=== PATIENT | female | born 1995 | race Two or more races ===

== ENCOUNTER 2023-09-26 12:02 | Emergency (ER) | payer OTHER, SELFPAY ==
[2023-09-26 12:43] VITALS: BMI 22.5
[2023-09-26 12:45] VITALS: BP 124/85; PULSE 124; RESP 16; TEMP 37.7; O2SAT 94
[2023-09-26] MEDS: Ibuprofen 600 MG TABLET PO (12:49)
--- NOTE | 2023-09-26 12:50 | PC.NURSE ---
medication administered per provider order.
[2023-09-26 12:59] LABS: IDNOW Serial# 08D9AD1C
[2023-09-26 13:00] LABS: Strep A Nucleic Acid Negative (Negative)
[2023-09-26 13:37] LABS: Influenza A PCR NEGATIVE (Negative); Influenza B PCR NEGATIVE (Negative); Resp Syncy Virus RNA Qual PCR NEGATIVE (Negative); SARS COV2 PCR INHOUSE POSITIVE (Negative)
[2023-09-26 13:45] VITALS: BP 113/81; PULSE 111; RESP 20; O2SAT 95
--- NOTE | 2023-09-26 13:51 | ED_ITS ---
HPI - URI/Sore Throat General Chief Complaint: Upper Respiratory Symptoms Stated Complaint: sore throat flu symptons Time Seen by Provider: 09/26/23 12:38 Source: patient, RN notes reviewed and old records reviewed Mode of arrival: ambulatory History of Present Illness HPI Narrative: 27-year-old female with no significant past medical history presenting to the ED complaining of myalgias, generalized fatigue/weakness, chills, cough, chest discomfort with coughing, and SOB x3-4 days. Admits family member recently tested positive for COVID-19. Also reports some nausea and vomiting. Denies abdominal pain, recent travel, diarrhea Related Data Previous Rx's Medication Instructions Recorded ondansetron 4 mg disintegrating 4 mg PO Q8H PRN nausea and 09/26/23 tablet vomiting #10 tabs Allergies Allergy/AdvReac Type Severity Reaction Status Date / Time No Known Allergies Allergy Verified 09/26/23 12:43 Review of Systems Review of Systems: Constitutional: No Fever, No Chills, +fatigue, +malaise ENT/Mouth: No Ear Pain, + Nasal Congestion, No Sinus Pain, No Hoarseness, +sore throat, + Rhinorrhea, No Swallowing Difficulty Cardiovascular: +Chest Pain w/cough, + SOB Respiratory: +Cough, No Sputum, No Wheezing Gastrointestinal: +Nausea, + Vomiting, No Diarrhea, No Constipation, No Abdominal pain Genitourinary: No Dysuria, No Urinary Frequency, No Flank Pain Musculoskeletal: No joint pain, + Myalgias, No Joint Swelling Skin: No Skin Lesions, No rash Neuro: No Weakness Yes all other systems are reviewed and are negative Constitutional: Constitutional: Reports as per [facility] Past Medical History Attestation statement: The following information was validated with the patient. Source: old records reviewed Social History Social History Smoked in Last 30 Days: No Use of substances other than those prescribed or required for medical reasons: No Advance Directives: No Advance Directives Information Provided: Yes Patient : No Physical Exam Vital Signs: Vital Signs: Last Vital Signs Temp 99.8 F 09/26/23 12:45 Pulse 111 H 09/26/23 13:45 Resp 20 09/26/23 13:45 BP 113/81 09/26/23 13:45 Pulse Ox 95 09/26/23 13:45 O2 Del Method Room Air 09/26/23 13:45 BMI result Body Mass Index 22.5 Const: General: cooperative, healthy appearing and no acute distress Orientation/consciousness: patient oriented x3 Limitations: no limitations HEENT: Head: Yes normal to inspection and Yes atraumatic Ears: hearing grossly normal bilaterally, external ears normal, TM's normal bilaterally and mastoids normal General nose exam: Normal external nose present Face and sinus: Yes normal facial exam Mouth: Normal oral and palatal mucosa present Throat: Yes posterior oropharynx normal, Yes tonsils normal and Yes uvula midline Eyes: General: appearance normal, both eyes and all related structures EOM: EOMs intact bilaterally Neck: Neck: Yes normal visual inspection and Yes no meningeal signs Resp: Effort & Inspection: normal respiratory effort, no respiratory distress and no stridor Auscultation: no crackles and no wheezes Cardio: Rate: regular rate and tachycardic Skin: Rashes: no rashes Wounds: no wounds Neuro: General: patient oriented x3, tone normal and no meningeal signs Cranial nerves: Yes CN's II-XII intact bilaterally Gait exam (Neuro): Normal gait present Extrem: General: Yes normal to inspection Course Course Course Narrative: -COVID-19 positive Results discussed with patient including worrisome signs and symptoms and strict return precautions, and when to return to the emergency department. They verbalized understanding and feel safe for discharge at this time. Medications Administered Discontinued Medications Generic Name Dose Route Start Last Admin Trade Name Freq PRN Reason Stop Dose Admin Ibuprofen 600 mg 09/26/23 12:44 09/26/23 12:49 Ibuprofen 600 Mg Tablet PO 09/26/23 12:45 600 mg ONCE ONE Administration Medical Decision Making Medical Decision Making [facility] Narrative: 27-year-old female with no significant past medical history presenting to the ED complaining of myalgias, generalized fatigue/weakness, chills, cough, chest discomfort with coughing, and SOB x3-4 days. On exam low-grade temp 99.8 degrees, tachycardic likely from fever, NAD/nontoxic appearing, lungs CTA. Concern for viral illness including COVID-19. Low suspicion for ACS/PE, pneumonia/bronchitis or DVT. No evidence of [employer]/retropharyngeal abscess Plan: Viral testing, rapid strep. Please refer to course for remaining clinical decision making, interpretation of labs/imaging results, and discussions with consultants and/or family members. Differential Diagnosis Differential Diagnoses: The differential diagnosis associated with the presentation includes As above Admission/Observation Consideration of admission/observation: Escalation of care including admission/observation considered Lab Data MDM Lab Attestation statement: I reviewed the patient's lab results. Labs: Lab Results 09/26/23 Range/Units 12:48 Influenza Type A (PCR) NEGATIVE (Negative) Influenza Type B (PCR) NEGATIVE (Negative) RSV RNA Qual (PCR) NEGATIVE (Negative) SARS-CoV-2 RNA (RT-PCR) POSITIVE A (Negative) S. pyogenes GrpA DAMIAN Negative (Negative) Radiology Impression Discussion of test interpretation with radiology: I have reviewed the radiologist's reading. External Record Review External record reviewed: Inpatient record, Office record, Outpatient record, Prior outpatient labs, Prior outpatient radiology, Primary care record and Outside ED record Tests considered The following testing was considered but not selected: As above Prescription Management I considered prescription management with: Pain Medication, Antiviral and Antibiotic Discharge Plan Discharge Clinical Impression: COVID-19 Patient Disposition: Home, Self-Care Instructions: COVID-19 (Coronavirus Disease 2019) (ED) Additional Instructions: YOU HAVE COVID-19 At this time you will be okay for discharge. Please self isolate for 5 days. Do not expose yourself to others. You may not go to work or school. Please continue to follow cold instructions and wash your hands frequently. You may take Tylenol / Motrin as directed on the bottle for pain or fever. If you have constant or persistent shortness of breath, fever unresolved with medications, chest pain, or your unable to eat or drink please return to the ED CDC Guidelines for home isolation: - Stay away from others - WEAR A MASK if you are sick AND STAY HOME - Cover your mouth and nose with a tissue when you cough or sneeze. Dispose of tissues in a lined trash can and wash your hands immediately with soap and water for at least 20 seconds. If soap and water are not available, clean hands with alcohol-based hand vice president of news that contains at least 60% alcohol. - Clean your hands often with soap and water for at least 20 seconds - Avoid touching your eyes, nose and mouth with unwashed hands - Do not share dishes, drinking glasses, cups, eating utensils, towels, or bedding with other people in your home. After using these items, wash them thoroughly with soap and water or put in the cleaner housekeeping. - Clean high-touch surfaces in your isolation area ( sick room and bathroom) every day; let a caregiver clean and disinfect high-touch surfaces in other areas of the home. Clean the area or item with soap and water or another detergent if it is dirty. Then, use a household disinfectant. - Limit contact with pets and animals: If you must care for a pet, wash your hands before and after interacting with them) Prescriptions: New ondansetron 4 mg tablet,disintegrating 4 mg PO Q8H PRN (Reason: nausea and vomiting) Qty: 10 0RF Referrals: Physician,Unknown J [Primary Care Provider] - Stand Alone Forms: Work/School Release
[2023-09-26] MEDS: Ondansetron ODT 4 MG TAB.RAPDIS TRANSLINGU (14:06)
[2023-09-26 14:08] VITALS: TEMP 36.8
== END 2023-09-26 14:09 | disposition home or self-care (01) ==
PROVIDERS: Emergency Provider Emergency Medicine
DX: U07.1 COVID-19 (principal); J02.9 Acute pharyngitis, unspecified; M79.10 Myalgia, unspecified site; R05.9 Cough, unspecified; R07.89 Other chest pain
CPT/HCPCS: 0241U; 87651; 99283; 99284

== ENCOUNTER 2024-01-28 23:07 | Emergency (ER) | payer OTHER, SELFPAY ==
--- NOTE | 2024-01-28 | ECG_ITS ---
Test Reason : CHEST PAIN Blood Pressure : / mmHG Vent. Rate : 098 BPM Atrial Rate : 098 BPM P-R Int : 146 ms QRS Dur : 080 ms QT Int : 336 ms P-R-T Axes : 037 071 000 degrees QTc Int : 428 ms Normal sinus rhythm Nonspecific T wave abnormality Abnormal ECG When compared with ECG of 20-JAN-2016 13:46, No significant change was found Referred By: Generic ED Physician Electronically Signed By:ZOFIA KUO
--- NOTE | ~2024-01-28 | XR_ITS ---
EXAMINATION: XR CHEST CLINICAL INFORMATION: Shortness of breath, chest discomfort COMPARISON: 12/27/2013 TECHNIQUE: 2 views of the chest were obtained. FINDINGS: The lungs are clear with no focal consolidation. No evidence of pneumothorax, pulmonary edema, or pleural effusions. The cardiomediastinal silhouette is unremarkable. No acute osseous findings. XR/XR chest 2V IMPRESSION: No acute cardiopulmonary findings.
[2024-01-28 23:19] VITALS: BP 123/73; PULSE 106; RESP 18; TEMP 37.2; O2SAT 98; BMI 24.2
[2024-01-28 23:38] LABS: MANUAL DIFF FLAG NO
[2024-01-28 23:39] LABS: Basophils Absolute Auto 0.1 X10*3/uL (0.0-0.2); Basophils Percent Auto 0.5 % (0-2); Eosinophils Absolute Auto 0.6 X10*3/uL (0.0-0.4); Eosinophils Percent Auto 4.6 % (0-4); Hematocrit 33.8 % (37.0-47.0); Hemoglobin 11.4 g/dl (12.0-16.0); Imm Gran Abs Auto 0.04 X10*3/uL (0.00-0.03); Imm Gran Pct Auto 0.3 % (0.0-0.4); Lymphocytes Absolute Auto 0.9 X10*3/uL (1.2-4.9); Lymphocytes Percent Auto 7.4 % (20-40); Mean Corpuscular HGB Conc 33.7 g/dl (31.0-35.0); Mean Corpuscular Hemoglobin 30.2 pg (27.0-33.0); Mean Corpuscular Volume 89.7 fL (80.0-98.0); Mean Platelet Volume 9.8 fL (9.4-12.3); Monocytes Absolute Auto 0.7 X10*3/uL (0.1-1.2); Neutrophils Absolute Auto 9.9 x10*3/uL (2.0-8.3); Neutrophils Percent Auto 81.2 % (45-73); Platelet Count 239 X10*3/uL (160-400); Red Blood Count 3.77 X10*6/uL (4.20-5.50); Red Cell Distribution Width 12.9 % (11.0-16.0); White Blood Count 12.2 X10*3/uL (4.8-10.8)
[2024-01-28 23:59] LABS: Alanine Aminotransferase 12 U/L (0-31); Albumin Level 4.1 g/dL (3.5-5.0); Alkaline Phosphatase 103 U/L (39-117); Anion Gap 12 (12-20); Aspartate Amino Transferase 16 U/L (5-31); Bilirubin Total 0.4 mg/dL (0.0-1.0); Blood Urea Nitrogen 10 mg/dL (9-16); Carbon Dioxide 24 mmol/L (22-29); Chloride 107 mmol/L (96-108); Creatinine Clr Calc Pharmacy 89.3; Estimated Glomerular Filt Rate > 60; Glucose Random 101 mg/dL (60-115); Potassium 3.7 mmol/L (3.3-5.1); Sodium 139 mmol/L (135-145); Total Protein 7.5 g/dL (6.5-8.0)
[2024-01-29 00:16] LABS: Influenza A PCR NEGATIVE (Negative); Influenza B PCR NEGATIVE (Negative); Resp Syncy Virus RNA Qual PCR NEGATIVE (Negative); SARS COV2 PCR INHOUSE NEGATIVE (Negative); Troponin-I High Sensitivity < 2.7 ng/L (<3.5-17.0)
[2024-01-29 02:05] VITALS: BP 116/62; PULSE 94; RESP 16; TEMP 37.2; O2SAT 94
[2024-01-29 05:00] VITALS: BP 122/81; PULSE 112; RESP 18; TEMP 36.8; O2SAT 97
--- NOTE | 2024-01-29 06:01 | PC.NURSE ---
Pt aox4 resting at the bedside. VSS besides HR 110's. Reports dry cough with nasal congestion, chest pain when coughing. Denies pain and sob at this time. Pending physician eval. Monitoring is ongoing.
--- NOTE | 2024-01-29 06:34 | ED.GENADULT ---
HPI - General Adult General Chief complaint: General Medical Stated complaint: chest pain/sob Time Seen by Provider: 01/29/24 06:32 Source: patient Mode of arrival: ambulatory Limitations: no limitations History of Present Illness HPI narrative: 22-year-old otherwise healthy female presents to the ER for evaluation chest pain and shortness of breath that occurred yesterday. patient has been sick for 2 days with cough, runny nose, and generally not feeling well. her mother was recently sick with the same symptoms. She states when she lies down she is started to get a dull, aching, substernal chest pain and was having shortness of breath because her nose was runny. She states it lasted a couple of hours and then subsided on its own. She has no current chest pain or shortness of breath. She denies any leg pain, leg swelling, recent travel. She has not on control pill. MD complaint: Chest pain and shortness of breath Onset (ago): hour(s) Location: chest Radiation: non-radiation Severity: moderate Quality: aching Pain Consistency: now resolved Relieving factors: none Exacerbating factors: none Associated symptoms: cough, headaches and shortness of breath Treatments prior to arrival: none Related Data Previous Rx's ?Medication ?Instructions ?Recorded ondansetron 4 mg disintegrating 4 mg PO Q8H PRN nausea and 09/26/23 tablet vomiting #10 tabs Allergies Allergy/AdvReac Type Severity Reaction Status Date / Time No Known Allergies Allergy Verified 01/28/24 23:19 Review of Systems Review of Systems: Yes all other systems are reviewed and are negative [facility] Social History Social History Smoked in Last 30 Days: No Use of substances other than those prescribed or required for medical reasons: No Advance Directives: No Advance Directives Information Provided: No Patient : No Physical Exam ED Vital Signs: Vital Signs - 24 hr 01/28/24 23:19 01/29/24 02:05 01/29/24 05:00 Temperature 99.0 F 98.9 F 98.2 F Pulse Rate 106 H 94 112 H Respiratory Rate 18 16 18 Blood Pressure 123/73 116/62 122/81 Pulse Oximetry 98 94 97 Oxygen Delivery Method Room Air Room Air Room Air BMI result Body Mass Index 24.2 Appearance: Alert. Oriented X3. No acute distress. Head: normocephalic, atraumatic. Eyes: Pupils equal, round and reactive to light. ENT: Pharynx normal. No tonsillar swelling or exudate. Neck: Normal inspection. Neck supple. CVS: Normal heart rate and rhythm. Pulses normal. Respiratory: No respiratory distress. Breath sounds normal. Abdomen: Soft and nontender. +BS x4 Skin: Skin warm and dry. Normal skin color. Normal skin turgor. No rashes. Extremities: No lower extremity edema. No joint swelling. Neuro/psych: Oriented X 3. No motor deficit. No sensory deficit. CN II-XII intact. Normal speech and cognition. Medical Decision Making Medical Decision Making [facility] Narrative: 8-year-old female presenting to the ER for evaluation of intermittent shortness of breath and chest pain. She states that the time it was hurting to move around and take a deep breath. Her symptoms have now completely resolved. She has been coughing and having other viral URI symptoms. On arrival to the ER patient's heart rate was low 100s. Blood pressure and oxygenation are stable. Her lung sounds are clear on examination. Her tachycardia most likely related to acute viral syndrome, viral illness. Her lab workup today was remarkable for leukocytosis of 12.2, with negative troponin and normal EKG. Her chest x-ray was normal. Reassured with patient's workup and exam. her clinical presentation is most c/w viral illness. low suspicion for cardiac etiology. no PE risk factors. at this time comfortable w/ discharge home. return precautions were discussed. Differential Diagnosis Differential Diagnoses: The differential diagnosis associated with the presentation includes strep, covid, flu, rsv, other viral syndrome, bronchitis, pneumonia, ACS, PE, costochondritis, myocarditis Admission/Observation Consideration of admission/observation: Escalation of care including admission/observation considered Lab Data [facility] Lab Attestation statement: I reviewed the patient's lab results. mild leukocytosis 01/28/24 23:33 01/28/24 23:33 Labs: Lab Results 01/28/24 Range/Units 23:33 WBC 12.2 H (4.8-10.8) X10*3/uL RBC 3.77 L (4.20-5.50) X10*6/uL Hgb 11.4 L (12.0-16.0) g/dl Hct 33.8 L (37.0-47.0) % MCV 89.7 (80.0-98.0) fL MCH 30.2 (27.0-33.0) pg MCHC 33.7 (31.0-35.0) g/dl RDW 12.9 (11.0-16.0) % Plt Count 239 (160-400) X10*3/uL MPV 9.8 (9.4-12.3) fL Immature Gran % (Auto) 0.3 (0.0-0.4) % Neut % (Auto) 81.2 H (45-73) % Lymph % (Auto) 7.4 L (20-40) % [place] % (Auto) 6.0 (2-11) % Eos % (Auto) 4.6 H (0-4) % Baso % (Auto) 0.5 (0-2) % Lymph # (Auto) 0.9 L (1.2-4.9) X10*3/uL [place] # (Auto) 0.7 (0.1-1.2) X10*3/uL Eos # (Auto) 0.6 H (0.0-0.4) X10*3/uL Baso # (Auto) 0.1 (0.0-0.2) X10*3/uL Abs Immat Gran (auto) 0.04 H (0.00-0.03) X10*3/uL Absolute Neuts (auto) 9.9 H (2.0-8.3) x10*3/uL Absolute Nucleated RBC 0.000 (0.0-0.012) X10*3/uL Nucleated RBC % (auto) 0.0 (0.0-0.2) /100WBC Sodium 139 (135-145) mmol/L Potassium 3.7 (3.3-5.1) mmol/L Chloride 107 (96-108) mmol/L Carbon Dioxide 24 (22-29) mmol/L Anion Gap 12 (12-20) BUN 10 (9-16) mg/dL Creatinine 0.75 (0.5-1.4) mg/dL Estim Creat Clear Calc 89.3 Estimated GFR > 60 Random Glucose 101 (60-115) mg/dL Calcium 9.0 (8.4-10.2) mg/dL Total Bilirubin 0.4 (0.0-1.0) mg/dL AST 16 (5-31) U/L ALT 12 (0-31) U/L Alkaline Phosphatase 103 (39-117) U/L Troponin I High Sens < 2.7 (<3.5-17.0) ng/L Total Protein 7.5 (6.5-8.0) g/dL Albumin 4.1 (3.5-5.0) g/dL Influenza Type A (PCR) NEGATIVE (Negative) Influenza Type B (PCR) NEGATIVE (Negative) RSV RNA Qual (PCR) NEGATIVE (Negative) SARS-CoV-2 RNA (RT-PCR) NEGATIVE (Negative) Independent Interpretation I performed an independent interpretation of an: EKG and Plain X-Ray Interpretation: no infiltrate or effusion, agree w/ radiology read EKG with normal sinus rhythm, T-wave inversions in AVF, lead 3, no ST segment elevations or depressions. Normal [place] interval, normal QTC. No change from prior in 2016 Radiology Impression Discussion of test interpretation with radiology: I have reviewed the radiologist's reading. Radiologist Impression: EXAMINATION: XR CHEST CLINICAL INFORMATION: Shortness of breath, chest discomfort COMPARISON: 12/27/2013 TECHNIQUE: 2 views of the chest were obtained. FINDINGS: The lungs are clear with no focal consolidation. No evidence of pneumothorax, pulmonary edema, or pleural effusions. The cardiomediastinal silhouette is unremarkable. No acute osseous findings. XR/XR chest 2V IMPRESSION: No acute cardiopulmonary findings. Independent Historian Clinical information obtained from an independent historian. History obtained from or confirmed by: Parent Prescription Management I considered prescription management with: Pain Medication and Antibiotic Critical Care Time Critical Care Time Critical Care Time: No Discharge Plan Discharge Clinical Impression: Costochondritis, Upper respiratory infection Patient Disposition: Home, Self-Care Instructions: Costochondritis (ED), Upper Respiratory Infection (DC) Additional Instructions: Your lab workup, EKG, chest x-ray and viral swabs today were all unremarkable. Your pain is most likely muscular. Recommend Motrin and Tylenol as needed for pain, body aches, fever, chills. Rest and drink plenty of fluids. Take other [id number] cold and flu medications as needed for your symptoms. If you develop new or worsening symptoms call 911 or come back to the ER for further evaluation. Prescriptions: No Action ondansetron 4 mg tablet,disintegrating 4 mg PO Q8H PRN (Reason: nausea and vomiting) Qty: 10 0RF Print Language: Tristanian
== END 2024-01-29 07:32 | disposition home or self-care (01) ==
PROVIDERS: Emergency Provider Emergency Medicine
DX: J06.9 Acute upper respiratory infection, unspecified (principal); M94.0 Chondrocostal junction syndrome [Tietze]
CPT/HCPCS: 0241U; 36415; 71046; 80053; 84484; 85025; 93005; 99283; 99284

== ENCOUNTER → 2024-01-28 23:13 | Outpatient (BNV) | payer OTHER, SELFPAY | PROVIDERS: Emergency Provider Emergency Medicine; Visit Provider Internal Medicine | DX: R07.9 Chest pain, unspecified (principal); R94.31 Abnormal electrocardiogram [ECG] [EKG] | CPT/HCPCS: 93010 ==